=== PATIENT | female | born 1990 | race Caucasian/White ===

== ENCOUNTER 2020-05-19 17:45 | Emergency (ER) | payer SELFPAY | END 2020-05-19 21:50 | disposition home or self-care (01) | LOC: ER1 17:45 | PROVIDERS: Physician Assistant | DX: S61.217A Laceration without foreign body of left little finger without damage to nail, initial encounter (principal); F17.290 Nicotine dependence, other tobacco product, uncomplicated; W26.0XXA Contact with knife, initial encounter; Y92.69 Other specified industrial and construction area as the place of occurrence of the external cause; Y99.0 Civilian activity done for income or pay | CPT/HCPCS: 12001; 80307; 99283 ==